=== PATIENT | female | born 1980 | race Caucasian/White ===

== ENCOUNTER → 2020-12-08 | Outpatient (CLI) | payer BC, OTHER ==
[2020-12-08 10:39] LABS: BUN/CREATININE RATIO 14 (0-10)
== END ==
LOC: CATH 09:47
PROVIDERS: Internal Medicine Cardiovascular Disease
DX: R55 Syncope and collapse (principal); R00.0 Tachycardia, unspecified; R00.2 Palpitations; R51.9 Headache, unspecified; R11.2 Nausea with vomiting, unspecified
CPT/HCPCS: 36415; 80048; 80061; 83735; 84439; 84443; 84481

== ENCOUNTER → 2020-12-19 | Outpatient (CLI) | payer BC, OTHER | LOC: HEART 5 09:30 | DX: Z13.9 Encounter for screening, unspecified (principal); R55 Syncope and collapse; R00.2 Palpitations; R00.0 Tachycardia, unspecified | CPT/HCPCS: 93306 ==

== ENCOUNTER → 2022-07-16 | Outpatient (CLI) | payer BC | LOC: KOH-I 10:30 | DX: R20.2 Paresthesia of skin (principal); R51.9 Headache, unspecified; J32.0 Chronic maxillary sinusitis | CPT/HCPCS: 70551 ==